=== PATIENT | female | born 1955 | race Caucasian/White ===

== ENCOUNTER 2017-09-22 05:49 | Inpatient (IN) | payer BC ==
[2017-09-22] VITALS (17 sets, daily range): BP systolic 89–140; BP diastolic 46–78
[~2017-09-22] VITALS: Ht 157.5 cm; Wt 74.4 kg
[~2017-09-22 05:49] MED LIST: NKM
[2017-09-22] MEDS ORDERED: cefOXitin Sod 2 GM in D5W 110 ML IVPB ONE (07:00)
[2017-09-22] MEDS ORDERED: cefOXitin 2gm Inj ONE (07:11)
[2017-09-22] MEDS ORDERED: Surgicel 4in x 8in TOPIC ONE (07:12)
[2017-09-22] MEDS ORDERED: NeoSporin Gu Irrig 1ml Amp IRRIG ONE (07:13)
[2017-09-22] MEDS ORDERED: Lidocaine 1% 10mg/ml/Epi 0.005mg/ml 30ml vial INJ ONE (07:13)
[2017-09-22] MEDS ORDERED: Bacitracin 50000 Units Vial ONE (07:13)
[2017-09-22] MEDS ORDERED: Bupivacaine 0.5% Inj 30 ml vial INJ ONE (07:13)
[2017-09-22] MEDS ORDERED: Ropivacaine 5mg/ml Vial 30ml INJ ONE (07:13)
--- NOTE | 2017-09-22 07:14 | Anethesia Preoperative Eval ---
Anesthesia Pre-op PMH/ROS General Date of Evaluation: Sep 22, 2017 Time of Evaluation: 07:47 Anesthesiologist: Giselle ASA Score: ASA 3 Mallampati Score Class I : Soft palate, uvula, fauces, pillars visible Class II: Soft palate, uvula, fauces visible Class III: Soft palate, base of uvula visible Class IV: Only hard plate visible Mallampati Classification: Class II Surgeon: Alfredito Diagnosis: Uterine/Bladder Prolapse Surgical Procedure: Vaginal Hysterectomy, Vaginal Sling, Cystocele Repair, Rectocele Repair Anesthesia History: none Family History: no anesthesia problems Allergies: Coded Allergies: No Known Allergies (Unverified , 09/21/17) Medications: see eMAR Past Medical History Cardiovascular: Reports: HTN Gastrointestinal/Genitourinary: Reports: other - Bladder Prolapse Other: obesity - BMI 32 PSxH Narrative: R TKR Anesthesia Pre-op Phys. Exam Physician Exam Last Vital Signs Date Time Temp Pulse Resp B/P (MAP) Pulse Ox O2 Delivery O2 Flow Rate FiO2 09/22/17 06:20 97.2 63 20 140/78 100 Room Air Constitutional: NAD Neurologic: CN 2-12 intact Cardiovascular: RRR Respiratory: CTA Gastrointestinal: S/NT/ND Airway Exam Mallampati Score: Class II MO: limited ROM: limited Teeth: intact Anesthesia Pre-op A/P Risk Assessment & Plan Assessment: ASA 3 Plan: GA, BIS, GlideScope Status Change Before Surgery: No Pre-Antibiotics Dru Grams Cefoxitin IV Given Within 1 Hr of Incision: Yes Time Given: 08:01 Andrade Desai MD Sep 22, 2017 07:14
[2017-09-22] MEDS ORDERED: ProvayBlue 5mg/ml 10ml amp INJ ONE (07:30)
[2017-09-22] MEDS ORDERED: Sulfanilamide 15% Cream - 78gm VAGIN ONE (07:30)
[2017-09-22] MEDS ORDERED: LR 1000ml 1,000 ML IVLG SCH (07:43)
[2017-09-22] MEDS ORDERED: Atropine Inj 1mg/10ml Syr IV PRN (07:45)
[2017-09-22] MEDS ORDERED: Norco 5mg/325mg tab ORAL PRN ×2 (07:45→15:00)
[2017-09-22] MEDS ORDERED: oxyCODONE HCL/Acetaminophen 5/325mg ORAL PRN (07:45)
[2017-09-22] MEDS ORDERED: Metoclopramide 10mg/2ml Inj IVP PRN ×2 (07:45→08:00)
[2017-09-22] MEDS ORDERED: Acetaminophen (Non formulary) 100 ML IV ONE (07:45)
[2017-09-22] MEDS ORDERED: Lidocaine 1% MPF 10mg/ml 5ml ONE ×2 (07:45→08:00)
[2017-09-22] MEDS ORDERED: Ketorolac 60mg Inj IV PRN (07:45)
[2017-09-22] MEDS ORDERED: Ketorolac 30mg Inj IV PRN (07:45)
[2017-09-22] MEDS ORDERED: fentaNYL 100 mcg/2 mL IV PRN (07:45)
[2017-09-22] MEDS ORDERED: DiphenhydrAMINE 50mg/ml Inj IVP PRN ×2 (07:45→08:00)
[2017-09-22] MEDS ORDERED: Sodium Chloride 10ml vial INJ ONE (07:45)
[2017-09-22] MEDS ORDERED: Midazolam 2mg/2ml Inj IVP PRN (07:45)
[2017-09-22] MEDS ORDERED: LORazepam Inj 2mg/ml 1ml IV PRN (07:45)
[2017-09-22] MEDS ORDERED: Hydromorphone 0.5mg/0.5ml inj IVP PRN ×2 (07:45→15:00)
[2017-09-22] MEDS ORDERED: Norco 7.5mg/325mg tab ORAL PRN (07:45)
--- NOTE | 2017-09-22 07:49 | Pre-Procedure Note/Attestation ---
Pre-Procedure Note/Attestation Complete Prior to Procedure Planned Procedure: not applicable Procedure Narrative: Cystocele and rectocele repair vaginal sling colposuspension cystoscopy Indications for Procedure Pre-Operative Diagnosis: prolapse Attestation I attest that I discussed the nature of the procedure; its benefits; risks and complications; and alternatives (and the risks and benefits of such alternatives ), prior to the procedure, with the patient (or the patient's legal equal opportunity representative). I attest that, if there was a reasonable possibility of needing a blood transfusion, the patient (or the patient's legal equal opportunity representative) was given the [facility] standardized written summary, pursuant to the [place] Blood Safety Act ([place] Health and Safety Code # 1645, as amended). I attest that I re-evaluated the patient just prior to the surgery and that there has been no change in the patient's H&P, except as documented below: Duncan Garcia MD Sep 22, 2017 07:49
--- NOTE | 2017-09-22 07:50 | Immediate Post-Op Evaluation ---
Immediate Post-Op Evalulation Immediate Post-Op Evalulation Procedure: Vaginal Hysterectomy, Vaginal Sling, Cystocele Repair, Rectocele Repair Date of Evaluation: Sep 22, 2017 Time of Evaluation: 11:15 IV Fluids: 1000 LR Blood Products: 0 Estimated Blood Loss: 40 Urinary Output: 0 Blood Pressure Systolic: 103 Blood Pressure Diastolic: 51 Pulse Rate: 50 Respiratory Rate: 16 O2 Sat by Pulse Oximetry: 99 Temperature (Fahrenheit): 97.5 Pain Score (1-10): 2 Nausea: No Vomiting: No Complications 0 Patient Status: awake, reacts, patent, extubated, none Hydration Status: adequate Dru Grams Cefoxitin IV Given Within 1 Hr of Incision: Yes Time Given: 08:01 Andrade Desai MD Sep 22, 2017 07:50
--- NOTE | 2017-09-22 07:55 | Pre-Procedure Note/Attestation ---
Pre-Procedure Note/Attestation Complete Prior to Procedure Planned Procedure: not applicable Procedure Narrative: vaginal hysterectomy Indications for Procedure Pre-Operative Diagnosis: uterine prolapse grade 2-3 grade 3 cystocele Attestation I attest that I discussed the nature of the procedure; its benefits; risks and complications; and alternatives (and the risks and benefits of such alternatives ), prior to the procedure, with the patient (or the patient's legal member services representative). I attest that, if there was a reasonable possibility of needing a blood transfusion, the patient (or the patient's legal member services representative) was given the [facility] standardized written summary, pursuant to the [place] Blood Safety Act ([place] Health and Safety Code # 1645, as amended). I attest that I re-evaluated the patient just prior to the surgery and that there has been no change in the patient's H&P, except as documented below: JIHAN NAVARRO Sep 22, 2017 07:55
[2017-09-22] MEDS ORDERED: NS Irrig 1000ml ONE (08:00)
[2017-09-22] MEDS ORDERED: fentaNYL 100 mcg/2 mL IV ONE (08:00)
[2017-09-22] MEDS ORDERED: LR 1000ml ONE ×3 (08:00)
[2017-09-22] MEDS ORDERED: Zolpidem 5mg tab ORAL PRN (08:00)
[2017-09-22] MEDS ORDERED: Dexamethasone 4mg/ml vial ONE (08:00)
[2017-09-22] MEDS ORDERED: Ketorolac 30mg Inj ONE (08:00)
[2017-09-22] MEDS ORDERED: Milk of Magnesia 30ml Ud ORAL PRN (08:00)
[2017-09-22] MEDS ORDERED: Propofol 1,000mg/ 100ml btl IV ONE (08:00)
[2017-09-22] MEDS ORDERED: Midazolam 2mg/2ml Inj ONE (08:00)
[2017-09-22] MEDS ORDERED: Neostigmine 1mg/ml 10ml Inj ONE (08:00)
[2017-09-22] MEDS ORDERED: Zemuron 50mg/5ml Inj IV ONE (08:00)
[2017-09-22] MEDS ORDERED: Sterile Water For Irrig 2000ml IRRIG ONE (08:00)
[2017-09-22] MEDS ORDERED: Sterile Water Irrig 1000ml IRRIG ONE (08:00)
[2017-09-22] MEDS ORDERED: Glycopyrrolate 0.2mg/ml 1ml Vial ONE (08:00)
[2017-09-22] MEDS ORDERED: ceFAZolin sod 1 GM in D5W 55 ML IVPB SCH (14:00)
[2017-09-22] MEDS ORDERED: D5 1/2NS w/KCl 20mEq 1,000 ML IV ONE (16:00)
[2017-09-22] MEDS: ceFAZolin sod 1 GM in D5W 55 ML IV SCH (18:42)
[2017-09-22] MEDS: Ketorolac 30mg Inj IV SCH (18:43)
[2017-09-22] MEDS: D5 1/2NS w/KCl 20mEq 1,000 ML IV SCH ×2 (18:43→20:59)
[2017-09-22] MEDS: Docusate 100mg cap ORAL SCH (18:44)
--- NOTE | 2017-09-22 21:15 | Operative Note - Dictated ---
DATE OF OPERATION: 09/22/2017 PREOPERATIVE DIAGNOSES: 1. Grade 2-3 uterine prolapse. 2. Grade 3 cystocele. POSTOPERATIVE DIAGNOSES: 1. Grade 2-3 uterine prolapse. 2. Grade 3 cystocele. PROCEDURES: 1. Vaginal hysterectomy. 2. Sher culdoplasty. SURGEON: Laura Piedra M.D. MINERAL RESOURCES INSPECTOR: Kya Curran M.D. ANESTHESIOLOGIST: Andrade Desai M.D. ANESTHESIA: General endotracheal. ESTIMATED BLOOD LOSS: 100 mL. PROCEDURE IN DETAIL: After ensuring informed consent, the patient was taken to the operating room where legs were placed in Norman stirrups. The patient was placed in dorsal lithotomy position. Weighted speculum was placed in the vagina. The cervix was circumferentially infiltrated with dilute solution of lidocaine with epinephrine. Using Bovie, the cervical mucosa was incised in a circumferential manner and vaginal mucosa was pushed off of the underlying cervix until peritoneum of the cul-de-sac was exposed and entered sharply with Arreola scissors. The peritoneal window was enlarged. A weighted speculum was placed inside the peritoneal window. Next, uterosacral ligaments were identified, grasped with Mariana's cotton suture ligated. Next, the cardinal ligaments were grasped with Mariana's cotton suture ligated. Next, attention was turned to the vesicouterine peritoneum, which was pushed off of the underlying lower uterine segment and cervix. Next, Mariana clamp was used along the uterine arteries, which were clamped, cotton suture ligated. Next, uterine fundus was extravasated into the vaginal-peritoneal incision from behind and a right-sided pedicle was grasped with a Mariana that contained the round and the utero-ovarian and the tube. It was grasped, cut, and suture ligated with two sutures. Again, similarly, the procedure was repeated on the left side until finally the uterus was completely amputated. Next, peritoneum was closed with a pursestring suture with 2-0 Vicryl. Excellent hemostasis was assured. At this point, Dr. Duncan Garcia came in to perform his portion of the procedure, namely sling. Instrument and lap counts were correct x2 at the end of my procedure. Estimated blood loss was 100 mL and vaginal cuff was left open per Dr. Garcia to close. Laura Piedra M.D. DR: DOMINIC JOB#: [id number] CC:
[2017-09-23] MEDS: ceFAZolin sod 1 GM in D5W 55 ML IV SCH ×2 (00:02→08:09)
[2017-09-23] MEDS: Ketorolac 30mg Inj IV SCH ×5 (00:03→18:25)
[2017-09-23 00:53] VITALS: BP 93/55
[2017-09-23] MEDS: D5 1/2NS w/KCl 20mEq 1,000 ML IV SCH ×5 (02:30→22:30)
[2017-09-23 04:30] VITALS: BP 100/52
[2017-09-23 06:44] LABS: BASOPHILS % (AUTO) 0.5 % (0.0-2.0); EOSINOPHILS % (AUTO) 0.2 % (0.0-3.0); MEAN CORPUSCULAR HEMOGLOBIN 31.4 PG (27.0-31.0); MEAN CORPUSCULAR HGB CONC 32.8 G/DL (32.0-36.0); MEAN CORPUSCULAR VOLUME 96 FL (80-99); MEAN PLATELET VOLUME 8.5 FL (6.5-10.1); MONOCYTES % (AUTO) 8.6 % (1.0-10.0); NEUTROPHILS % (AUTO) 65.7 % (45.0-75.0); PLATELET COUNT 200 K/UL (150-450); RED BLOOD COUNT 3.29 M/UL (4.20-5.40); RED CELL DISTRIBUTION WIDTH 11.6 % (11.6-14.8); WHITE BLOOD COUNT 6.7 K/UL (4.8-10.8)
[2017-09-23 07:10] LABS: ANION GAP 6 mmol/L (5-15); CALCIUM 8.2 MG/DL (8.5-10.1); CARBON DIOXIDE 26 MMOL/L (21-32); CHLORIDE 109 MMOL/L (98-107); CREATININE 0.8 MG/DL (0.55-1.30); GLOMERULAR FILTRATION RATE > 60 mL/min (>60); SODIUM 141 MMOL/L (136-145)
[2017-09-23 08:00] VITALS: BP 101/47
[2017-09-23] MEDS: Docusate 100mg cap ORAL SCH ×2 (08:10→18:24)
[2017-09-23 12:00] VITALS: BP 104/60
--- NOTE | 2017-09-23 12:19 | General Surgery Progress Note ---
General Surgery-Progress Note Subjective Symptoms: improved, pain absent, tolerating diet Objective Last 24 Hour Vital Signs Date Time Temp Pulse Resp B/P (MAP) Pulse Ox O2 Delivery O2 Flow Rate FiO2 09/23/17 08:00 97.0 69 17 101/47 98 Room Air 09/23/17 07:18 98.2 09/23/17 06:55 Room Air 09/23/17 04:30 98.2 59 19 100/52 96 09/23/17 00:53 98.4 81 18 93/55 93 09/23/17 00:00 Room Air 09/22/17 20:51 Room Air 09/22/17 20:49 98.3 80 19 96/54 95 09/22/17 16:09 98.2 77 20 101/53 97 09/22/17 13:30 98.4 66 18 105/60 100 09/22/17 13:15 98.0 56 18 101/62 99 09/22/17 13:07 98.6 52 20 112/57 100 Nasal Cannula 3.0 09/22/17 13:00 53 20 106/54 100 Nasal Cannula 3.0 09/22/17 12:50 52 21 107/56 100 Nasal Cannula 3.0 09/22/17 12:40 53 18 103/54 100 Nasal Cannula 3.0 09/22/17 12:30 50 20 100/52 100 Nasal Cannula 3.0 09/22/17 12:20 48 21 95/50 100 Nasal Cannula 3.0 Drains: none Cardiovascular: RSR Respiratory: clear Abdomen: soft, flat, non-tender, present bowel sounds Extremities: no edema Laboratory Tests Test 09/23/17 05:10 White Blood Count 6.7 K/UL (4.8-10.8) Red Blood Count 3.29 M/UL (4.20-5.40) L Hemoglobin 10.3 G/DL (12.0-16.0) L Hematocrit 31.5 % (37.0-47.0) L Mean Corpuscular Volume 96 FL (80-99) Mean Corpuscular Hemoglobin 31.4 PG (27.0-31.0) H Mean Corpuscular Hemoglobin Concent 32.8 G/DL (32.0-36.0) Red Cell Distribution Width 11.6 % (11.6-14.8) Platelet Count 200 K/UL (150-450) Mean Platelet Volume 8.5 FL (6.5-10.1) Neutrophils (%) (Auto) 65.7 % (45.0-75.0) Lymphocytes (%) (Auto) 25.0 % (20.0-45.0) Monocytes (%) (Auto) 8.6 % (1.0-10.0) Eosinophils (%) (Auto) 0.2 % (0.0-3.0) Basophils (%) (Auto) 0.5 % (0.0-2.0) Sodium Level 141 MMOL/L (136-145) Potassium Level 4.0 MMOL/L (3.5-5.1) Chloride Level 109 MMOL/L (98-107) H Carbon Dioxide Level 26 MMOL/L (21-32) Anion Gap 6 mmol/L (5-15) Blood Urea Nitrogen 11 mg/dL (7-18) Creatinine 0.8 MG/DL (0.55-1.30) Estimat Glomerular Filtration Rate > 60 mL/min (>60) Glucose Level 112 MG/DL (74-106) H Calcium Level 8.2 MG/DL (8.5-10.1) L Plan Additional Comments doing well ambulate burrows out tomorrow and bladder trial JIHAN NAVARRO Sep 23, 2017 12:19
--- NOTE | 2017-09-23 14:31 | 48 Hour Post Anesthesia Eval ---
Post Anesthesia Evaluation Procedure: Vaginal Hysterectomy, Vaginal Sling, Cystocele Repair, Rectocele Repair Date of Evaluation: Sep 23, 2017 Time of Evaluation: 14:30 Blood Pressure Systolic: 128 0: 79 Pulse Rate: 87 Respiratory Rate: 18 Temperature (Fahrenheit): 98 O2 Sat by Pulse Oximetry: 99 Airway: patent Nausea: No Vomiting: No Pain Intensity: 0 Hydration Status: adequate Mental Status/LOC: patient returned to baseline Post-Anesthesia Complications: none Follow-up care needed: patient intructions given Mark Hodges M.D. Sep 23, 2017 14:31
[2017-09-23 16:00] VITALS: BP 116/54
[2017-09-23 20:00] VITALS: BP 118/63
[2017-09-24] VITALS: BP 124/71
[2017-09-24] MEDS: Ketorolac 30mg Inj IV SCH ×3 (00:23→12:11)
[2017-09-24 04:00] VITALS: BP 119/71
[2017-09-24 08:00] VITALS: BP 140/68
[2017-09-24] MEDS: Docusate 100mg cap ORAL SCH (08:34)
--- NOTE | 2017-09-24 10:07 | General Surgery Progress Note ---
General Surgery-Progress Note Subjective Symptoms: pain absent, tolerating diet, passing flatus Objective Last 24 Hour Vital Signs Date Time Temp Pulse Resp B/P (MAP) Pulse Ox O2 Delivery O2 Flow Rate FiO2 09/24/17 08:00 97.9 82 20 140/68 99 Room Air 09/24/17 04:00 98.0 72 18 119/71 99 Room Air 09/24/17 01:00 98.8 09/24/17 00:00 98.6 83 18 124/71 96 Room Air 09/23/17 20:00 98.8 78 18 118/63 94 Room Air 09/23/17 16:00 97.9 78 16 116/54 98 Room Air 09/23/17 14:31 87 18 99 09/23/17 12:00 97.0 62 17 104/60 97 I&O Intake and Output 09/24/17 09/25/17 19:00 07:00 Intake Total 240 ml Output Total 300 ml Balance -60 ml Intake Oral 240 ml Output Urine Total 300 ml Dressing: dry Wound: clean Drains: none Cardiovascular: RSR Respiratory: clear Abdomen: soft, non-tender, present bowel sounds Extremities: no edema Assessment Additional Comments doing well discharge home void trial +/- discharge home with/ without burrows depending on void trial JIHAN NAVARRO Sep 24, 2017 10:07
--- NOTE | 2017-09-24 10:09 | Discharge Summary ---
Discharge Summary Hospital Course Date of Admission Sep 22, 2017 at 05:49 Date of Discharge 09/24/2017 Admitting Diagnosis uterine prolapse/ cystocele / incontinance HPI Tammy Larson is a 62 year old female who was admitted on Sep 22, 2017 at 05: 49 for Bladder Prolapse Procedures vaginal hysterectomy, mcCalls, sling Hospital Course ambulated/tolerated regular diet/ Discharge Condition Upon Discharge: stable Discharge Disposition Patient was discharged to home Discharge Diagnoses: JIHAN NAVARRO Sep 24, 2017 10:09
[2017-09-24 12:09] VITALS: BP 113/73
--- NOTE | 2017-09-27 08:15 | Operative Note - Dictated ---
DATE OF OPERATION: 09/22/2017 PREOPERATIVE DIAGNOSIS: Complete vaginal prolapse. POSTOPERATIVE DIAGNOSIS: Complete vaginal prolapse. OPERATIONS: Transvaginal cystocele repair, rectocele repair, colposuspension, vaginal wall sling, and cystoscopy. SURGEON: Duncan Garcia M.D. ANESTHESIA: General. FINDINGS: Complete vaginal prolapse. INDICATION FOR SURGERY: The patient had a large cystocele and rectocele. Treatment options were explained to her in great length including all potential complications. She is aware that we are going to use a mesh to support her vagina as well as the nature of the procedure and complications. She signed the consent. DESCRIPTION OF PROCEDURE: The patient was brought to the operating room, placed in lithotomy position. Dr. Piedra finished the transvaginal hysterectomy and closed the peritoneum first. After that I started my surgery with incision and entered the vagina. Bladder was from the vagina using blunt and sharp dissection. Retrovesical space was entered and using [employer] Roomish device, sutures were placed in the sacrospinal muscles on both sides of the bladder. Using the mesh, bladder and vagina were supported anteriorly and . After that, mid urethral sling was closed in the mid urethra. The wound was irrigated. Vagina was trimmed and closed anteriorly. After that, transvaginal rectocele repair was done in standard fashion perirectal fascia and reapproximation with interrupted [id number] 2-0 Vicryl sutures. Good vaginal depth was accomplished. The vagina was then packed. Cystoscopy showed ejection of indigo carmine from both ureteral orifices and no evidence of bladder perforation. Sponge count and instrument count was correct. The vagina was closed posteriorly and a Steve catheter was left indwelling. The patient was transferred to recovery room in stable condition. No evidence of complications. Duncan Garcia M.D. DR: ERIC JOB#: [id number] CC:
== END 2017-09-24 14:50 | disposition home or self-care (01) | DRG 743 ==
LOC: SDSOVERFLO 05:49 → 3E 14:22
PROC: 0JQC0ZZ Repair Pelvic Region Subcutaneous Tissue and Fascia, Open Approach (ICD-10-PCS; principal; 2017-09-22 07:30)
PROC: 0UT97ZZ Resection of Uterus, Via Natural or Artificial Opening (ICD-10-PCS; principal; 2017-09-22 07:30)
PROC: 0TSD0ZZ Reposition Urethra, Open Approach (ICD-10-PCS; 2017-09-22 07:30)
PROC: 0USG0ZZ Reposition Vagina, Open Approach (ICD-10-PCS; 2017-09-22 07:30)
DX: N81.3 Complete uterovaginal prolapse (principal); R32 Unspecified urinary incontinence; Z96.651 Presence of right artificial knee joint
CPT/HCPCS: 36415; 80048; 85025; 86850; 86900; 86901; 87081; 94003; 94150; J2250; J2405; J2710; J2765